=== PATIENT | male | born 1960 | race Caucasian/White ===

== ENCOUNTER 2018-07-25 15:25 | Emergency (ER) | payer SELFPAY ==
[~2018-07-25] VITALS: Ht 177.8 cm; Wt 63.5 kg
[2018-07-25] MEDS ORDERED: DEXAMETHASONE SOD PHOS 10 MG/1 ML VIAL IM ONE ×2 (16:00)
== END 2018-07-25 16:03 | disposition home or self-care (01) ==
LOC: FSED 15:25
DX: M25.521 Pain in right elbow (principal); M70.21 Olecranon bursitis, right elbow
CPT/HCPCS: 99283; J1100